=== PATIENT | female | born 1975 | race Two or more races ===

== ENCOUNTER → 2024-01-12 | Outpatient (CLI) | payer MEDICARE, SELFPAY ==
--- NOTE | 2024-01-12 | XR_ITS ---
Examination: Right elbow 3 views Technique: Elbow AP, oblique, lateral 3 views Exam date and time: January 12, 2024 0903 hours INDICATIONS: Onset right elbow pain beginning 2 months ago no trauma FINDINGS: Moderate osteopenia No fracture or dislocation No elbow effusion No significant arthritic change IMPRESSION: No fracture No significant arthritic change.
== END | disposition home or self-care (01) ==
PROVIDERS: PCP Family Medicine; Referring Provider Family Medicine; Visit Provider Family Medicine
DX: M77.11 Lateral epicondylitis, right elbow (principal)
CPT/HCPCS: 73080

== ENCOUNTER → 2024-01-24 | Outpatient (CLI) | payer MEDICARE, SELFPAY ==
--- NOTE | 2024-01-24 08:41 | XR_ITS ---
Examination: Left elbow 3 views Technique: Elbow AP, oblique, lateral 3 views Exam date and time: January 24, 2024 0901 hours INDICATIONS: Left elbow pain beginning 2 months ago FINDINGS: No fracture or dislocation No arthritic change No elbow effusion IMPRESSION: Negative for osseous abnormality.
== END | disposition home or self-care (01) ==
LOC: COPL 08:38 → CDIM 02-15 12:46
PROVIDERS: PCP Family Medicine; Referring Provider Family Medicine; Visit Provider Family Medicine
DX: M25.522 Pain in left elbow (principal)
CPT/HCPCS: 73080

== ENCOUNTER → 2024-02-26 | Outpatient (CLI) | payer MEDICARE, SELFPAY | END | disposition home or self-care (01) | PROVIDERS: PCP Family Medicine; Referring Provider Family Medicine; Visit Provider Family Medicine | DX: M25.552 Pain in left hip (principal) ==

== ENCOUNTER → 2024-02-26 | Outpatient (CLI) | payer MEDICARE, SELFPAY ==
--- NOTE | 2024-02-26 14:00 | XR_ITS ---
Examination: MRI left elbow, without contrast Date and time of exam: February 26, 2024 1452 hrs. Indications: Lateral elbow pain stiffness redness swelling and pain beginning 6 months ago Technique: Multiple axial sagittal and coronal images of the left elbow have been obtained with the Siemens high-resolution 1.5 [employer] MRI scanner. Images obtained include T2-weighted fat-suppressed sagittal sections, TR 3500, TE 46, T2 weighted coronal fat suppressed images, TR 3050, TE 84, T2-weighted transverse fat suppressed images, TR 3260, TE 63, proton density transverse images, TR 4720 TE 46, and T1 weighted coronal images, TR 560, TE 13. Findings: Adequate marrow signal No occult fracture bone contusion or avascular necrosis Moderate strain common extensor tendon Radial collateral ligament is intact Common flexor tendon intact as well as ulnar collateral ligament No opaque foreign bodies Normal triceps tendon Small knee effusion No ossified joint bodies Impression: Moderate strain common extensor tendon
--- NOTE | 2024-02-26 14:45 | XR_ITS ---
Examination: MRI right, without contrast Date and time of exam: August 25, 2024 at 1426 hrs. Indications: Lateral right-sided elbow pain weakness dizziness 5 months Technique: Multiple axial sagittal and coronal images of the right elbow have been obtained with the Siemens high-resolution 1.5 [employer] MRI scanner. Images obtained include T2-weighted fat-suppressed sagittal sections, TR 3500, TE 46, T2 weighted coronal fat suppressed images, TR 3050, TE 84, T2-weighted transverse fat suppressed images, TR 3260, TE 63, proton density transverse images, TR 4720 TE 46, and T1 weighted coronal images, TR 560, TE 13. Findings: No occult fracture The coronal images are degraded by patient motion The mediolateral elbow ligamentous complexes appear intact Actually on this study the medial humeral condyle appears more prominent in the lateral humeral condyle The triceps tendon is markedly thickened, tendinosis pattern Long head of the biceps is intact inserting into the radial tuberosity Impression: This patient should return at no charge for nonmotion degraded coronal T2-weighted images of the elbow
== END | disposition home or self-care (01) ==
LOC: SMRI 03-02 08:23
PROVIDERS: Referring Provider Family Medicine; Visit Provider Family Medicine
DX: M77.11 Lateral epicondylitis, right elbow (principal); M25.552 Pain in left hip
CPT/HCPCS: 73221

== ENCOUNTER → 2024-03-11 | Outpatient (CLI) | payer MEDICARE, SELFPAY ==
--- NOTE | 2024-03-11 14:45 | XR_ITS ---
Examination: MRI right elbow, without contrast Date and time of exam: March 11, 2024 1826 hrs. Indications: Lateral right-sided elbow pain weakness beginning 5 months ago Technique: Multiple axial sagittal and coronal images of the right elbow have been obtained with the Siemens high-resolution 1.5 [facility] MRI scanner. Images obtained include T2-weighted fat-suppressed sagittal sections, TR 3500, TE 46, T2 weighted coronal fat suppressed images, TR 3050, TE 84, T2-weighted transverse fat suppressed images, TR 3260, TE 63, proton density transverse images, TR 4720 TE 46, and T1 weighted coronal images, TR 560, TE 13. Findings: Adequate marrow signal No occult fracture No ossified joint body Hyperintense common flexor tendon consistent with moderate strain Common extensor tendon lateral collateral ligament annular ligament intact No avascular necrosis Impression: Moderate strain common flexor tendon
== END | disposition home or self-care (01) ==
PROVIDERS: PCP Family Medicine; Referring Provider Family Medicine; Visit Provider Family Medicine
DX: S56.211A Strain of other flexor muscle, fascia and tendon at forearm level, right arm, initial encounter (principal); X58.XXXA Exposure to other specified factors, initial encounter
CPT/HCPCS: 73221

== ENCOUNTER → 2024-05-09 | Outpatient (CLI) | payer MEDICARE, SELFPAY | END | disposition home or self-care (01) | LOC: SLDO 16:19 | PROVIDERS: PCP Family Medicine; Referring Provider Family Medicine; Visit Provider Family Medicine | DX: N39.0 Urinary tract infection, site not specified (principal) | CPT/HCPCS: 87077; 87086; 87186 ==

== ENCOUNTER → 2025-01-19 | Outpatient (CLI) | payer MEDICARE, SELFPAY | END | disposition home or self-care (01) | LOC: SLDO 15:43 | PROVIDERS: PCP Family Medicine; Referring Provider Family Medicine; Visit Provider Family Medicine | DX: N39.0 Urinary tract infection, site not specified (principal) | CPT/HCPCS: 87077; 87086; 87186 ==